=== PATIENT | female | born 1975 | race Hispanic/Latino ===

== ENCOUNTER 2017-12-09 09:36 | Outpatient (CLI) | payer SELFPAY | END 2017-12-09 09:37 | disposition home or self-care (01) | LOC: BICMAMMO 09:36 | PROVIDERS: ATTEND Orthopaedic Surgery Sports Medicine | DX: N63.20 Unspecified lump in the left breast, unspecified quadrant (principal) | CPT/HCPCS: G0279 ==

== ENCOUNTER → 2017-12-16 | Day surgery (SDC) | payer OTHER, SELFPAY | LOC: BICULT 13:40 | PROVIDERS: ATTEND Family Medicine | PROC: 0HBU3ZX Excision of Left Breast, Percutaneous Approach, Diagnostic (ICD-10-PCS; principal; 2017-12-16) | DX: N63.20 Unspecified lump in the left breast, unspecified quadrant (principal) | CPT/HCPCS: 19100; 76942; 88305 ==

== ENCOUNTER 2021-07-22 09:04 | Emergency (ER) | payer SELFPAY | END 2021-07-22 10:13 | disposition home or self-care (01) | LOC: ERS 09:04 | DX: G51.0 Bell's palsy (principal) | CPT/HCPCS: 99283 ==